=== PATIENT | male | born 1965 | race African-American/Black ===

== ENCOUNTER 2022-10-13 04:21 | Emergency (ER) | payer SELFPAY ==
[~2022-10-13] VITALS: Ht 177.8 cm; Wt 81.6 kg
[2022-10-13 04:23] VITALS: BP 157/107
[2022-10-13 04:38] VITALS: BP 157/107
--- NOTE | 2022-10-13 04:38 | NUR ---
PATIENT BIB [facility] [employer]. PATIENT EXAMINED BY DR. PINEDA. PATIENT MEDICALLY CLEARED AND RELEASED IN CUSTODY IN STABLE CONDITION. ORIGINAL PRE-BOOK FORM GIVEN TO OFFICER YASMIN.
== END 2022-10-13 10:48 ==
LOC: MED 04:21
DX: F43.9 Reaction to severe stress, unspecified (principal)
CPT/HCPCS: 99283